=== PATIENT | male | born 1960 | race Two or more races ===

== ENCOUNTER 2025-01-29 16:41 | Emergency (ER) | payer MEDICAID, SELFPAY ==
[2025-01-29 17:04] VITALS: BP 161/103; PULSE 94; RESP 20; TEMP 37; O2SAT 96; BMI 29.7
--- NOTE | 2025-01-29 17:18 | EKG_ITS ---
[facility] Test Date: 2025-01-29 Pat Name: ANÍBAL REAL Department: Room: - Gender: Male [employer]: : 1960 Requested By: Claudia Cannon Order Number: [id number] Reading MD: Claudia Cannon Measurements Intervals [place] Rate: 93 P: 24 WA: 136 QRS: 11 QRSD: 82 T: 54 QT: 313 QTc: 390 Interpretive Statements SINUS RHYTHM No previous ECG available for comparison /store/S0/[id number].pdf
--- NOTE | 2025-01-29 17:18 | PD.EDRME ---
Rapid Medical Screening Exam FORMERLY [facility], [facility] Arrival date/time: 01/29/25 16:41 This is a 64-year-old male that comes into the emergency room with complaints of being sent by primary doctor because of elevated CK and CK-MB. Patient is currently being worked up by his primary provider for what sounds to be leg fasciculations. Patient has no leg pain however his legs seem to be constantly moving inside them per patient patient states that he had a nerve conduction study and it was normal. Patient recently had lab work done and his CK and CK-MB were elevated per patient patient was sent by primary doctor today. Patient reports that last week he was sweating profusely for no reason.. Patient denies chest pain shortness of breath. I have greeted and performed a focused initial assessment of this patient. Initial appropriate labs ordered at this time. A comprehensive ED assessment and evaluation of the patient and analysis of all test and completion of medical decision making process will be conducted by additional ED provider. Chief Complaint: General Adult/Misc Complain Time Seen by Provider: 01/29/25 16:52 Vital signs: Vital Signs Temperature 98.6 F 01/29/25 17:04 Pulse Rate 94 01/29/25 17:04 Respiratory Rate 20 01/29/25 17:04 Blood Pressure 161/103 H 01/29/25 17:04 Pulse Oximetry (%) 96 01/29/25 17:04 Oxygen Delivery Method Room Air 01/29/25 17:04 Exam: Alert and oriented, breathing even and unlabored, cap refill less than 2 seconds, GCS 15 Clinical Impression: AR, rhabdo, restless leg syndrome differential
--- NOTE | 2025-01-29 17:21 | XR_ITS ---
EXAMINATION: PA chest single view TECHNIQUE: 1. Upright PA chest single view Date and time: January 29, 2025, 1732 hours INDICATION: Chest pain today. FINDINGS: Normal heart size Accentuation of the bronchovascular markings. No cliff lobar pneumonia. No pulmonary edema The osseous structures are intact IMPRESSION: Bronchitis pattern
[2025-01-29 17:52] LABS: Basophils # (Auto) 0.1 Thou/mm3 (0.0-0.2); Basophils % (Auto) 1 % (0-2.5); Eosinophils # (Auto) 0.1 Thou/mm3 (0.0-0.5); Eosinophils % (Auto) 2 % (0-10); Hematocrit 45.7 % (41.0-53.0); Hemoglobin 15.8 g/dL (13.5-16.0); Immature Granulocytes Auto 0.03 Thou/mm3 (0.00-0.00); Lymphocytes # (Auto) 2.0 Thou/mm3 (1.0-4.8); Lymphocytes % (Auto) 24 % (10-50); Mean Corpuscular HGB Conc 34.6 g/dl (31.0-37.0); Mean Corpuscular Hemoglobin 31.6 pg (25.0-35.0); Mean Corpuscular Volume 91 fL (80-100); Monocytes # (Auto) 0.9 Thou/mm3 (0.0-0.8); Monocytes % (Auto) 10 % (0-12); Neutrophils # (Auto) 5.4 Thou/mm3 (1.8-7.7); Neutrophils % (Auto) 64 % (37-80); Nucleated Red Blood Cell # 0.00 Thou/mm3 (0.00-0.00); Nucleated Red Blood Cell % 0 /100 WBC (0); Platelet Count 242 Thou/mm3 (140-440); RDW Standard Deviation 41.2 fL (35.1-43.9); Red Blood Count 5.00 Miln/mm3 (4.50-5.90); White Blood Count 8.4 Thou/mm3 (3.8-10.6)
[2025-01-29 18:04] LABS: B-Type Natriuretic Peptide < 20 pg/mL (0-100)
[2025-01-29 18:07] LABS: Alanine Aminotransferase 44 U/L (10-49); Albumin, Serum 5.2 gm/dL (3.4-4.8); Albumin/Globulin Ratio 2.2 (1.2-2.2); Alkaline Phosphatase 102 U/L (46-116); Anion Gap 11 (7-16); Aspartate Amino Transferase 40 U/L (0-34); BUN/Creatinine Ratio 10 Ratio (12-20); Bilirubin,Total 0.4 mg/dL (0.3-1.2); Blood Urea Nitrogen 10 mg/dL (9-23); Calcium 10.0 mg/dL (8.3-10.6); Calcium (Corrected) 10.0 mg/dL (8.5-10.1); Carbon Dioxide 25.5 mMol/L (20.0-31.0); Chloride 106 mMol/L (98-107); Creatine Kinase 399 U/L (34-171); Creatinine (Component) 1.0 mg/dL (0.6-1.3); Estimated Creatinine Clearance 79.3 mL/min (>60); Globulin 2.4 gm/dL (2.3-3.5); Glucose 148 mg/dL (74-106); Osmolality,Calculated 285 (275-295); Potassium 4.6 mMol/L (3.4-5.1); Sodium 142 mMol/L (136-145); Total Protein 7.6 gm/dL (5.7-8.2); Troponin I 0.029 ng/mL (0.0-0.045); eGFR > 60 See Note
--- NOTE | 2025-01-29 18:14 | EDNOTE_ITS ---
ED General RME/HPI General Chief complaint: General Adult/Misc Complain Stated complaint: TOTAL CKMB 591; SENT BY [facility] Time Seen by Provider: 01/29/25 16:52 Arrival date/time: 01/29/25 16:41 RME / HPI RME / HPI narrative: 01/29/25 16:41 This is a 64-year-old male that comes into the emergency room with complaints of being sent by primary doctor because of elevated CK and CK-MB. Patient is currently being worked up by his primary provider for what sounds to be leg fasciculations. Patient has no leg pain however his legs seem to be constantly moving inside them per patient patient states that he had a nerve conduction study and it was normal. Patient recently had lab work done and his CK and CK- MB were elevated per patient patient was sent by primary doctor today. Patient reports that last week he was sweating profusely for no reason.. Patient denies chest pain shortness of breath. I have greeted and performed a focused initial assessment of this patient. Initial appropriate labs ordered at this time. A comprehensive ED assessment and evaluation of the patient and analysis of all test and completion of medical decision making process will be conducted by additional ED provider. Dr. German?s Main ED Evaluation: 64yo male presenting with elevated muscle enzymes after patient had initially been seen for ongoing fasciculations x 2-3 months. No back or radicular symptoms. No BLE weakness. No recent new medications. Patient is in the process of being referred to neurology and had a nerve conduction test (which was reportedly normal). PMH DM. PSH unremarkable. Social history negative. Related Data Home Medications ?Medication ?Instructions ?Recorded ?Confirmed metformin 500 mg tablet 500 mg PO BID 07/29/1707/29 Previous Rx's ?Medication ?Instructions ?Recorded cyclobenzaprine 5 mg tablet 5 mg PO BID 10 days #20 ta bs 01/29/25 diltiazem HCl 120 mg 120 mg PO QAM #30 caps 01/29 capsule,extended release 24 hr (Cardizem CD) Allergies Allergy/AdvReac Type Severity Reaction Status Date / Time Penicillins Allergy Unknown UNK Verified 01/29/25 16:44 Review of Systems Review of Systems Systems Reviewed: All systems reviewed, normal except as documented Past Medical History Past Medical History CARDIAC: Negative Congestive Heart Failure RESPIRATORY: Negative Chronic Obstructive Pulmonary Disease (COPD) GENITOURINARY: Negative Renal Disease ENDOCRINE: Positive Diabetes Mellitus Type 2; Negative Diabetes Mellitus Type 1 Social History SMOKING STATUS: Never smoker ED Exam Narrative Physical exam: GENERAL APPEARANCE: alert and oriented x 4, well-developed, well-nourished, complains of uncontrollable muscle contractions within his legs, no acute distress VITALS: All vitals were reviewed and the pulse ox is 96% on room air, which is normal according to my interpretation. HEENT: Normocephalic, atraumatic; pupils equal, round, reactive to light; EOMI; mucous membranes pink, moist; oropharynx clear NECK: Supple LUNGS: CTABL; no wheezes, no rales, no rhonchi HEART: Regular rate, regular rhythm; normal S1, S2; no murmurs ABDOMEN: non distended; normal BS; soft, no tenderness, no guarding, no rebound; no masses, no organomegaly, no hernia BACK: no CVA tenderness EXTREMITIES: atraumatic; no edema NEUROLOGIC: awake; alert and oriented x4; GCS 15, cranial nerves II-XII grossly intact; DTRs 2+ to the upper extremities, but are absent in the lower extremities; negative clonus, negative straight leg raise, negative babinski PSYCHIATRIC: appropriate mood and affect SKIN: warm, dry, normal color; no rashes Course Quality Measures none Orders Category Date Time Status EKG (ED ONLY) *Do not use* NOW Care 01/29/25 17:[address] head/brain wo con Stat Exams 01/29/25 19:10 Completed EKG (ED Only) Stat Exams 01/29/25 17:18 Draft XR chest 1V Stat Exams 01/29/25 17:21 Completed BNP [B-Type Natriuretic Peptide] Stat Lab 01/29/25 17:30 Completed C-Reactive Protein Stat Lab 01/29/25 17:30 Completed CBC Stat Lab 01/29/25 17:30 Completed CK [Creatine Kinase] Stat Lab 01/29/25 17:30 Completed Comprehensive Metabolic Panel Stat Lab 01/29/25 17:30 Completed Drug Screen,Urine Stat Lab 01/29/25 20:16 Completed ESR [Sed Rate (ESR)] Stat Lab 01/29/25 17:30 Completed Troponin I Stat Lab 01/29/25 17:30 Completed Diazepam [Valium] Med 01/29/25 21:17 Discontinued 5 mg PO X1 ONE Vital Signs Vital signs: Vital Signs Temperature 98.6 F 01/29/25 17:04 Pulse Rate 94 01/29/25 17:04 Respiratory Rate 20 01/29/25 17:04 Blood Pressure 161/103 H 01/29/25 17:04 Pulse Oximetry (%) 96 01/29/25 17:04 Oxygen Delivery Method Room Air 01/29/25 17:04 Discharge Plan Plan Patient Disposition: HOME (Self Care) Discharge Disposition comment: Stable Prescriptions/Referrals Prescriptions/Med Rec: New diltiazem HCl [Cardizem CD] 120 mg capsule,extended release 24hr 120 mg PO QAM Qty: 30 1RF cyclobenzaprine 5 mg tablet 5 mg PO BID 10 Days Qty: 20 0RF No Action metformin 500 mg Tablet 500 mg PO BID Referrals: No Primary/Family,Physician [Primary Care Provider] - In 1 week Problem List Clinical Impression: Fasciculations of muscle, Hypertension Patient/Caregiver Discharge Instructions Discharge Activity: activity as tolerated Diet Instructions: avoid excessive caffeine Education Materials: ED Hypertension, New (Begin Treatment), ED Muscle Spasm Additional Instructions: Avoid excessive caffeine. Medication as directed. Follow-up with primary care and monitor blood pressure at home twice daily. If systolic blood pressures greater than 140/90 begin diltiazem 120 CD. Record blood pressures and follow- up with primary care doctor in 1 to 2 weeks. Print Language: Irish Stand Alone Forms: [facility]be Award Info., Patient Portal Info Letter MDM Narrative MDM hospital course (for use when minimal MDM required): Scribe Attestation: 01/29/25 Betzy Boucher am scribing for and in the presence of Dr. German. 64yo male presenting with elevated muscle enzymes after patient had initially been seen for ongoing fasciculations x 2-3 months. No back or radicular symptoms. Please see PE findings. Lab markers including CBC and chemistries are unremarkable. Tox screen positive for marijuana only. CT head unremarkable. CXR demonstrates ?bronchitis. Patient treated with Valium for symptomatic relief. Notably hypertensive throughout ED course. 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 Will consider CCB for hypertension and noted syndrome. Will add B complex vitamin and discharge home. Patient instructed to follow-up with neurology for intervention as patient may require MRI and these symptoms may be reflective of ALS, MS, etc. Precautionary instructions issued. Clinical Information Provided by: patient Medical Records reviewed [facility] (Per chart review, patient has no previous ED visits or admissions to this facility.) Meds/Rx considered, not ordered None Labs/Rad/Tests considered, not ordered None Chronic Illness/Social Conditions Explain: Hx DMII EKG Interpretation EKG #1: EKG Interpretation: EKG done at 1724, sinus rhythm, rate of 93, no acute pathological ST segment changes, no ectopy, normal intervals, normal axis, according to my interpretation. Labs Labs: interpreted by me Imaging Imaging interpretation: interpreted by me Imaging Interpretation(s): [facility] Signed Patient: ANÍBAL REAL. Record#: [id number] Birthdate: 1960 Age/Sex: 64 / M Location: [facility] Attending Dr: Ordering Physician: Claudia Cannon NP Date of Service: 01/29/25 Procedure(s): XR chest 1V Accession Number(s): [id number] cc: Eugene Velasquez MD; NO PRIMARY/FAMILY,PHYSICIAN; Claudia Cannon NP~ EXAMINATION: PA chest single view TECHNIQUE: 1. Upright PA chest single view Date and time: January 29, 2025, 1732 hours INDICATION: Chest pain today. FINDINGS: Normal heart size Accentuation of the bronchovascular markings. No cliff lobar pneumonia. No pulmonary edema The osseous structures are intact IMPRESSION: Bronchitis pattern Dictated By: Eugene Velasquez MD Signed By: <Electronically signed by uEgene Velasquez MD in [place]> 01/29/25 3893 [facility] Signed Patient: ANÍBAL REAL. Record#: [id number] Birthdate: 1960 Age/Sex: 64 / M Location: [facility] Attending Dr: Ordering Physician: Mario Torrez DO Date of Service: 01/29/25 Procedure(s): CT head/brain wo con Accession Number(s): [id number] cc: Mario Torrez DO; Eugene Velasquez MD; NO PRIMARY/FAMILY,PHYSICIAN~ Examination: CT brain head without contrast. 2-D sagittal coronal reconstructions Date and time of exam: January 29, 2025, 1932 hours,. INDICATIONS: High blood pressure headache today CTDI: vol (mGy): 52.2 DLP: (mGycm): 1056 Technique: Multiple CT axial sections of the brain have been obtained, 5 mm slice thickness. Contrast has not been administered. 2-D sagittal, coronal reconstructions have been obtained Low dose protocols were performed. One or more of the following dose reduction techniques were used; automated exposure control, adjustment of the mA and/or KV according to patient size, use of iterative reconstruction technique. Findings: No significant ventricular enlargement. Intra-axial or extra-axial hemorrhage density is not seen. No mass effect or midline shift Basal cisterns are not remarkable. Fourth ventricle is midline. Cranial vault intact. Impression: Negative for acute hemorrhage, mass effect or midline shift Advise clinical correlation and follow-up accordingly Dictated By: Eugene Velasquez MD Signed By: <Electronically signed by Eugene Velasquez MD in [place]> 01/29/252017 Medication Administration(s) Medication Administration History Discontinued Medications Diazepam (Diazepam 5 Mg Tablet) 5 mg PO X1 ONE Stop: 01/29/25 21:18 Last Admin: 01/29/25 21:29 Dose: 5 mg Documented By: AC Valium 5mg Diagnosis Differential Diagnosis ED Complaint MDM: electrolye abnormality, ALS, thyroid disease, tumor, infection
[2025-01-29 18:21] VITALS: BP 170/108; PULSE 95; RESP 19; TEMP 36.8; O2SAT 94
--- NOTE | 2025-01-29 18:25 | PC.NURSE ---
In to assess pt. Pt sent in by pcp with c/o HIGH CKMB. pt reports he had labs done a few days ago and provider stated CKMB was in the 500's, instructed to come to ED. Pt without any complaints at this time. Pending providers review and further orders. Call light placed within reach. at bedside. Plan of care ongoing.
--- NOTE | 2025-01-29 19:10 | XR_ITS ---
Examination: CT brain head without contrast. 2-D sagittal coronal reconstructions Date and time of exam: January 29, 2025, 1932 hours,. INDICATIONS: High blood pressure headache today CTDI: vol (mGy): 52.2 DLP: (mGycm): 1056 Technique: Multiple CT axial sections of the brain have been obtained, 5 mm slice thickness. Contrast has not been administered. 2-D sagittal, coronal reconstructions have been obtained Low dose protocols were performed. One or more of the following dose reduction techniques were used; automated exposure control, adjustment of the mA and/or KV according to patient size, use of iterative reconstruction technique. Findings: No significant ventricular enlargement. Intra-axial or extra-axial hemorrhage density is not seen. No mass effect or midline shift Basal cisterns are not remarkable. Fourth ventricle is midline. Cranial vault intact. Impression: Negative for acute hemorrhage, mass effect or midline shift Advise clinical correlation and follow-up accordingly
[2025-01-29 19:38] LABS: Sed Rate (ESR) 16 mm/hr (0-20)
[2025-01-29 19:45] LABS: C-Reactive Protein < 0.5 mg/dL (0.0-0.9)
[2025-01-29 20:22] VITALS: BP 161/108; BP 162/99; PULSE 94; RESP 19; TEMP 36.7; O2SAT 95
[2025-01-29 20:41] LABS: Amphetamine/Methamp Scrn,U Negative (Negative); Barbiturate Screen,Urine Negative (Negative); Benzodiazepines Screen,Urine Negative (Negative); Benzoylecgonine Screen, Ur Negative (Negative); Fentanyl Screen,Urine Negative (Negative); Opiate Screen,Urine Negative (Negative); THC Screen,Urine Positive (Negative)
[2025-01-29] MEDS: DIAZEPAM 5 MG TABLET PO (21:29)
[2025-01-29 21:30] VITALS: BP 133/96; PULSE 89; RESP 16; TEMP 36.7; O2SAT 95
== END 2025-01-29 21:46 | disposition home or self-care (01) ==
PROVIDERS: Nurse Practitioner Family; Emergency Provider Emergency Medicine
DX: J40 Bronchitis, not specified as acute or chronic (principal); E11.9 Type 2 diabetes mellitus without complications; I10 Essential (primary) hypertension; Z79.84 Long term (current) use of oral hypoglycemic drugs
CPT/HCPCS: 36415; 70450; 71045; 80053; 80307; 82550; 83880; 84484; 85025; 85652; 86140; 93005; 99282; A9270